=== PATIENT | male | born 1975 | race Caucasian/White ===

== ENCOUNTER 2017-03-28 13:30 | Emergency (ER) | payer BC, OTHER ==
[2017-03-28 13:36] VITALS: BP 126/76; PULSE 78; TEMP 98.4; BMI 34.3
--- NOTE | 2017-03-28 14:09 | PDOC ---
[id number] KNEE PAIN Time Seen by Provider: 03/28/17 13:53 History Source: Patient Exam Limitations: No Limitations - History of Present Illness Initial Comments: 03/28/17 16:17 Chief complaint: left knee with redness around area History of present illness: Pt.is a 41-year-old male with no significant medical problems here today complaining of sudden onset of left knee pain and that started 4 days ago with slight redness just below his left knee that has radiated distally. Patient reports that area is very tender there to touch. Patient denies any calf pain. Patient does have torturous pains in his left calf however he does deny left calf pain. Patient reports that he was working when he bent down on his left knee he felt sudden pain in his left knee then noticed the redness just below his left knee 4 days ago. Patient did not take anything for pain today. Patient reports that last night he had chills but no fever. Patient denies having any open area on his skin left leg. Occurred: reports: other (3 days ago ) Severity: Yes: moderate Lower Extremity Pain Location: left: knee Method of Injury: Yes: other (bending down on left knee) Modifying Factors: improves with: None Associated Symptoms: erythema from left knee radiating medially & mid & laterally Lower Ext. Injury Location - Specific Injury Location Legs: left: other (erythema from left knee medially radiating distally by 17 cm , mid & lateral knee area radiating distally by 10 cm ) Knees: left normal range of motion, left pain Extremity Pain Location - Extremity Pain Location Extremity Pain Locations: left: knee, leg Past History - Past Medical History Allergies/Adverse Reactions: Allergies Allergy/AdvReac Type Severity Reaction Status Date / Time Penicillins Allergy Unknown Verified 03/28/17 13:33 Home Medications: Ambulatory Orders Clindamycin [Cleocin -] 300 mg PO Q8H #29 capsule 03/28/17 Ibuprofen 600 mg PO Q6H PRN #18 tablet 03/28/17 Other medical history: denies. - Psycho/Social/Smoking Cessation Hx Anxiety: No Suicidal Ideation: No Smoking History: Never smoked Hx Alcohol Use: Yes (occassionally.) Drug/Substance Use Hx: No Substance Use Type: Alcohol Review of Systems - Review of Systems Able to Perform ROS?: Yes Constitutional: No: Symptoms Reported HEENTM: No: Symptoms Reported Respiratory: No: Symptoms reported Cardiac (ROS): No: Symptoms Reported ABD/GI: No: Symptoms Reported : No: Symptoms Reported Musculoskeletal: Yes: Joint Pain (left knee ). No: Joint Swelling Integumentary: Yes: Erythema (from left knee medially radiates distally 17 cm, mid knee and lateral radiates distally 10 cm with tendeness and increased warmth of area) Neurological: No: Symptoms reported *Physical Exam - Vital Signs Last Vital Signs Temp Pulse Resp BP Pulse Ox 98.4 F 78 18 126/76 98 03/28/17 13:32 03/28/17 13:32 03/28/17 13:32 03/28/17 13:32 03/28/17 13:32 - Physical Exam General Appearance: Yes: Appropriately Dressed Respiratory/Chest: positive: Lungs Clear, Normal Breath Sounds. negative: Chest Tender, Respiratory Distress Cardiovascular: positive: Regular Rhythm, Regular Rate, S1, S2 Vascular Pulses: Doralis-Pedis (L): 4+ Extremity: positive: Normal Capillary Refill, Normal Range of Motion (left knee ), Tender (left knee medially and laterally), Erythema (left medial knee radiates distally 17 cm, mid & lateral left knee radiates distally 10 cm with increased warmth of skin), Other (torturous varicosities left calf, negative Ar' s sign left leg, negative crepitus left knee, negative anterior/ posterior drawer) Integumentary: positive: Other (see under extremity ) Neurologic: positive: Alert, Normal Response, Motor Strength 5/5 (left leg ), Respond to painful stimul (left leg lower ), Responsive ED Treatment Course - RADIOLOGY Radiology Studies Ordered: Category Date Time Status KNEE 3 POS-LEFT [RAD] Stat Radiology 03/28/17 14:08 Ordered Medical Decision Making - Medical Decision Making 03/28/17 16:25 Pt.is a 41-year-old male with no significant medical problems here today complaining of sudden onset of left knee pain and that started 4 days ago with slight redness just below his left knee that has radiated distally. Patient reports that area is very tender there to touch. Patient denies any calf pain. Patient does have torturous pains in his left calf however he does deny left calf pain. Patient reports that he was working when he bent down on his left knee he felt sudden pain in his left knee then noticed the redness just below his left knee 4 days ago. Patient did not take anything for pain today. Patient reports that last night he had chills but no fever. Patient denies having any open area on his skin left leg. Left knee pain with erythema below knee getting worse over 4 days r/o parisa abnormality left knee R/O DVT PLAN: left knee xray no parisa abnormality noted, gilles seen per Dr. Baeza venous doppler left leg no evidence of Dvt ibuprofen 600 mg po now 03/28/17 16:47 *DC/Admit/Observation/Transfer Diagnosis at time of Disposition: Cellulitis of left leg Knee pain, left Qualifiers: Chronicity: acute Qualified Code(s): M25.562 - Pain in left knee - Discharge Dispostion Disposition: HOME Condition at time of disposition: Stable - Prescriptions Prescriptions: Clindamycin [Cleocin -] 300 mg PO Q8H #29 capsule Ibuprofen 600 mg PO Q6H PRN #18 tablet PRN Reason: Pain - Patient Instructions Additional Instructions: Return to emergency room if increased redness of area on left leg and use symptoms develop or increased swelling of area or fever Follow-up with your primary care provider on 03/30/2017 PATIENT Voiced understanding of discharge instructions and all questions were answered
[2017-03-28] MEDS ORDERED: IBUPROFEN 600 MG TABLET (FP) PO ONE ×2 (14:11→14:20)
[2017-03-28] MEDS ORDERED: CLINDAMYCIN HCL 300 MG CAPSULE PO ONE (16:44)
== END 2017-03-28 17:02 | disposition home or self-care (01) ==
LOC: JERFT 13:30
DX: L03.116 Cellulitis of left lower limb (principal)
CPT/HCPCS: 73562-TC-LT; 93971-TC; 99281-25